=== PATIENT | female | born 1950 | race Caucasian/White ===

== ENCOUNTER → 2016-08-09 | Outpatient (CLI) | payer MEDICARE, BC | LOC: GMAH 20:55 | PROVIDERS: ATTEND Nurse Practitioner Acute Care | DX: R30.0 Dysuria (principal) ==

== ENCOUNTER → 2017-05-07 | Outpatient (CLI) | payer MEDICARE | LOC: GMAJ 14:56 | PROVIDERS: ATTEND Family Medicine | DX: N30.00 Acute cystitis without hematuria (principal) ==

== ENCOUNTER 2017-06-26 18:34 | Emergency (ER) | payer MEDICARE ==
[2017-06-26] MEDS ORDERED: IPRATROPIUM/ALBUTEROL 3 ML VIAL NEB ONE (19:06)
[2017-06-26] MEDS ORDERED: MONTELUKAST 10 MG TAB PO ONE (19:07)
[2017-06-26 19:08] VITALS: BP 98/47; TEMP 97.9
[2017-06-26] MEDS ORDERED: predniSONE 20 MG TAB PO ONE (19:08)
[2017-06-26] MEDS ORDERED: AZITHROMYCIN 250 MG TAB PO ONE (19:08)
[2017-06-26] MEDS ORDERED: CETIRIZINE HCL 10 MG TAB PO ONE (19:11)
[2017-06-26] MEDS ORDERED: HYDROcodone 5MG/APAP 325MG 1 EA TAB PO ONE (19:11)
[2017-06-26 19:29] VITALS: O2SAT 97
--- NOTE | 2017-06-26 19:59 | ED.PDOC ---
History of Present Illness - General Chief Complaint: General Stated Complaint: upper respiratory infection Time Seen by Provider: 06/26/17 19:00 Source: patient Exam Limitations: no limitations - History of Present Illness Initial Comments: The patient is a 66-year-old female presenting to the emergency room secondary to cough that has been present the last 4 days. She has had a mild sore throat and a runny nose as well. She was tested for flu and her primary care doctor's office 2 days ago and was given a steroid shot and a cephalosporin antibiotic. She tested negative for the flu. The patient does have a significant history of asthma and has been doing her breathing treatments every 6 hours as appropriate. She does still have significant wheezes scattered throughout but does have fair air movement. Posterior oropharynx shows mild erythema. She is not in respiratory distress. She is coughing very frequently and does have a hoarse cough. Timing/Duration: unsure Severity: moderate Improving Factors: nothing Worsening Factors: nothing Associated Symptoms: cough Allergies/Adverse Reactions: Allergies NO KNOWN ALLERGY Allergy (Verified 08/19/13 13:46) Review of Systems - Review of Systems Constitutional: States: no symptoms reported EENTM: States: no symptoms reported Respiratory: States: cough Cardiology: States: no symptoms reported Gastrointestinal/Abdominal: States: no symptoms reported Genitourinary: States: no symptoms reported Musculoskeletal: States: no symptoms reported Skin: States: no symptoms reported Neurological: States: no symptoms reported Endocrine: States: no symptoms reported Hematologic/Lymphatic: States: no symptoms reported All other Systems: No Change from Baseline Past Medical History (General) - Patient Medical History Hx Asthma: Yes Surgical History: Hysterectomy - Vaccination History Hx Influenza Vaccination: No - Social History Hx Tobacco Use: No Feels Threatened In Home Enviroment: No Feels Threatened In a Relationship: No - Female History Patient is a Female of Child Bearing Age (10 -59 yrs old): No Physical Exam - Physical Exam General Appearance: Alert, Comfortable, No apparent distress Eye Exam: bilateral normal Ears, Nose, Throat: hearing grossly normal, nasal congestion, pharyngeal erythema Neck: non-tender, supple Respiratory: no respiratory distress, no accessory muscle use, rhonchi - cattered, wheezing - scattered Cardiovascular/Chest: normal peripheral pulses, regular rate, rhythm, no edema Peripheral Pulses: radial,right: 2+, radial,left: 2+, dorsalis pedis,right: 2+, dorsalis pedis,left: 2+ Gastrointestinal/Abdominal: non tender, soft Rectal Exam: deferred Back Exam: normal inspection, no CVA tenderness Extremity: normal range of motion, non-tender, normal inspection, no pedal edema , normal capillary refill 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 This is being complicated by her asthma. The patient is going to be switched over to azithromycin on the off chance that an atypical bacterial source is the cause. She is to continue her nebulizer treatments every 4-6 hours. I am going to add Singulair 10 mg daily to the patient for the next 5 days as well as prednisone 20 mg for the next 2 days. She has received first doses of the each here today. Additionally she can take Zyrtec 10 mg nightly for the next 3 or 4 days only. She can also use a humidifier at night. She will also be written for guaifenesin with codeine as a cough medication to be used for the next day or 2 as needed as her cough is rather severe. ER warnings are given for any significant worsening. She should follow up with her primary care doctor in a day or 2. the prednisone and Singulair are mildly immunosuppressive. They do carry the potential of increasing the length of the infection however her asthma seems to be the bigger problem at the current time. 06/26/17 20:02 - Results/Orders Results/Orders: 06/26/17 19:05 Chest,2 Views [RAD] Stat no obvious infiltrate. No pneumothorax. Minimal air trapping. Departure - Departure Clinical Impression: Acute bronchitis, Asthma exacerbation Disposition: Discharge to Home or Self Care Condition: Good Departure Forms: ED Discharge - Pt. Copy, Patient Portal Self Enrollment Instructions: DI for Asthma -- Adult, DI for Acute Bronchitis Diet: regular diet Activity: increase activity as tolerated Referrals: Julio Cesar Caicedo MD [Primary Care Provider] - 1-2 Days Additional Instructions: the patient is a 66-year-old female presenting with what is most likely a viral respiratory tract infection. This is being complicated by her asthma. The patient is going to be switched over to azithromycin on the off chance that an atypical bacterial source is the cause. She is to continue her nebulizer treatments every 4-6 hours. I am going to add Singulair 10 mg daily to the patient for the next 5 days as well as prednisone 20 mg for the next 2 days. She has received first doses of the each here today. Additionally she can take Zyrtec 10 mg nightly for the next 3 or 4 days only. She can also use a humidifier at night. She will also be written for guaifenesin with codeine as a cough medication to be used for the next day or 2 as needed as her cough is rather severe. ER warnings are given for any significant worsening. She should follow up with her primary care doctor in a day or 2. the prednisone and Singulair are mildly immunosuppressive. They do carry the potential of increasing the length of the infection however her asthma seems to be the bigger problem at the current time.
--- NOTE | 2017-06-26 20:04 | RAD ---
Examination: XR CHEST 2 VIEWS dated 06/26/2017 7:05 PM REMOTE RECRUITER History: cough, sob Comparison: 02/25/2012 Technique: Frontal and lateral views of the chest Findings: The lungs are clear bilaterally. No pneumothorax or pleural effusion. The cardiomediastinal silhouette is within normal limits. Impression: No acute disease. Electronically signed by: Barrie Robbins MD 06/26/2017 8:03 PM REMOTE RECRUITER
== END 2017-06-26 20:13 | disposition home or self-care (01) ==
LOC: ER 18:34
DX: J20.9 Acute bronchitis, unspecified (principal); J45.901 Unspecified asthma with (acute) exacerbation
CPT/HCPCS: 71020; 94640; J7512; J7620; Q0144

== ENCOUNTER → 2017-08-05 | Outpatient (CLI) | payer MEDICARE | LOC: GMAH 10:46 | PROVIDERS: ATTEND Family Medicine | DX: E78.2 Mixed hyperlipidemia (principal) ==

== ENCOUNTER 2017-09-01 13:22 | Emergency (ER) | payer MEDICARE ==
[2017-09-01] MEDS ORDERED: KETOROLAC TROMETHAMINE INJ 30 MG/ML VIAL IV ONE ×2 (13:35→16:37)
[2017-09-01] MEDS ORDERED: PROMETHAZINE HCL INJ 12.5 MG in SODIUM CHLORIDE 0.9% 50ML 50 ML IVPB ONE (13:35)
[2017-09-01] MEDS ORDERED: PROMETHAZINE HCL INJ 25 MG/ML VIAL ONE (13:37)
[2017-09-01] MEDS ORDERED: SODIUM CHLORIDE 0.9% 50ML 50 ML ONE (13:38)
--- NOTE | 2017-09-01 13:38 | ED.PDOC ---
History of Present Illness - General Chief Complaint: Abdominal Pain Stated Complaint: abdominal pain Time Seen by Provider: 09/01/17 13:35 Additional Information: 66 YEAR OLD WHITE FEMALE HERE WITH SUDDEN ONSET OF PAIN IN THE RIGHT LOWER QUADRANT AND PAIN RADIATED FROM RIGHT FLANK TO RIGHT LOWER QUADRANT AND FLANK WELL ASSOCIATED WITH VOMITING - History of Present Illness Abdominal Pain Onset Location: RUQ, suprapubic Pain Radiation: flank, groin Review of Systems - Review of Systems Constitutional: States: no symptoms reported EENTM: States: no symptoms reported Respiratory: States: no symptoms reported Cardiology: States: no symptoms reported Gastrointestinal/Abdominal: States: abdominal pain, vomiting Genitourinary: States: dysuria Musculoskeletal: States: no symptoms reported Skin: States: no symptoms reported Endocrine: States: no symptoms reported Past Medical History (General) - Patient Medical History Hx Asthma: Yes - Vaccination History Hx Influenza Vaccination: No - Social History Hx Tobacco Use: No Family Medical History - Family History Mother Family History: Unknown Progress - Results/Orders Results/Orders: Laboratory Tests 09/01/17 09/01/17 09/01/17 13:30 13:30 13:30 WBC 12.5 H RBC 4.69 Hgb 13.2 Hct 39.1 MCV 83.4 MCH 28.2 MCHC 33.8 RDW 13.7 Plt Count 260 MPV 9.4 Absolute Neuts (auto) 8.00 H Absolute Lymphs (auto) 3.30 Absolute Monos (auto) 0.80 Absolute Eos (auto) 0.20 Absolute Basos (auto) 0.20 H Neutrophils % 64.1 Lymphocytes % 26.3 Monocytes % 6.8 Eosinophils % 1.5 Basophils % 1.3 Sodium 137 Potassium 4.1 Chloride 104 Carbon Dioxide 24 Anion Gap 13.1 BUN 21 H Creatinine 0.87 BUN/Creatinine Ratio 24.1 H Random Glucose 148 H Serum Osmolality 279.5 Calcium 9.5 Total Bilirubin 0.5 AST 31 ALT 36 Alkaline Phosphatase 100 Serum Total Protein 7.7 Albumin 4.0 Globulin 3.7 H Albumin/Globulin Ratio 1.1 Amylase 53 Lipase 25 Urine Color Urine Appearance Urine pH Ur Specific [place] Urine Protein Urine Glucose (UA) Urine Ketones Urine Blood Urine Nitrite Urine Bilirubin Urine Urobilinogen Ur Leukocyte Esterase Urine RBC Urine WBC Ur Epithelial Cells Urine Bacteria 09/01/17 13:36 WBC RBC Hgb Hct MCV MCH MCHC RDW Plt Count MPV Absolute Neuts (auto) Absolute Lymphs (auto) Absolute Monos (auto) Absolute Eos (auto) Absolute Basos (auto) Neutrophils % Lymphocytes % Monocytes % Eosinophils % Basophils % Sodium Potassium Chloride Carbon Dioxide Anion Gap BUN Creatinine BUN/Creatinine Ratio Random Glucose Serum Osmolality Calcium Total Bilirubin AST ALT Alkaline Phosphatase Serum Total Protein Albumin Globulin Albumin/Globulin Ratio Amylase Lipase Urine Color Yellow Urine Appearance Clear Urine pH 5.0 Ur Specific [place] >= 1.030 Urine Protein Negative Urine Glucose (UA) Negative Urine Ketones Negative Urine Blood Trace-lysed H Urine Nitrite Negative Urine Bilirubin Negative Urine Urobilinogen 0.2 Ur Leukocyte Esterase Negative Urine RBC 1-3 Urine WBC 0-1 Ur Epithelial Cells 3-5 Urine Bacteria 0 Departure - Departure Clinical Impression: Abdominal pain, Ureteric stone Time of Disposition: 16:43 Disposition: Discharge to Home or Self Care Condition: Good Departure Forms: ED Discharge - Pt. Copy, Patient Portal Self Enrollment Instructions: DI for Abdominal Pain-Adult Diet: resume usual diet Referrals: Julio Cesar Caicedo MD [Primary Care Provider] - 1-2 Weeks Prescriptions: Acetamin W/Cod #3 Tab [Tylenol w/CODEINE #3] 1 ea PO Q6HR PRN #40 tab PRN Reason: Mild To Moderate Pain Tamsulosin HCl [Flomax] 0.4 mg PO Q24HR #1 cap Promethazine Tab [Phenergan Tablet] 25 mg PO .Q4H #10 tab Home Medications: Ambulatory Orders Acetamin W/Cod #3 Tab [Tylenol w/CODEINE #3] 1 ea PO Q6HR PRN #40 tab 09/01/17 Promethazine Tab [Phenergan Tablet] 25 mg PO .Q4H #10 tab 09/01/17 Tamsulosin HCl [Flomax] 0.4 mg PO Q24HR #1 cap 18
[2017-09-01] MEDS ORDERED: SODIUM CHLORIDE 0.9% 1000ML 1,000 ML IVS ONE (13:43)
[2017-09-01] MEDS ORDERED: fentaNYL CITRATE INJ 50 MCG/ML AMP ONE (13:51)
[2017-09-01] MEDS ORDERED: fentaNYL CITRATE INJ 50 MCG/ML AMP IV ONE (13:52)
[2017-09-01] MEDS ORDERED: HYDROmorphone HCL INJ 2 MG/ML VIAL ONE (14:18)
[2017-09-01] MEDS ORDERED: HYDROmorphone HCL INJ 2 MG/ML VIAL IV ONE (14:18)
[2017-09-01 14:33] VITALS: TEMP 99.5
[2017-09-01 15:44] VITALS: BP 156/83
--- NOTE | 2017-09-01 16:23 | CT ---
EXAM DESCRIPTION: Abdomen/Pelvis w/o Contrast CLINICAL HISTORY: abdominal pain, emesis COMPARISON: 09/06/2014 TECHNIQUE: CT of the abdomen and pelvis was performed without contrast. Multiple axial images and multiplanar reconstructions were generated. This exam was performed according to our departmental dose-optimization program, which includes automated exposure control, adjustment of the mA and/or kV according to patient size and/or use of iterative reconstruction technique. FINDINGS: Lung bases: The visualized lung bases are clear. Solid organs: There is moderate right hydronephrosis and hydroureter with an obstructing 5 mm calculus in the right ureter at the level of the ureterovesical junction. Several additional punctate 2 mm nonobstructing right renal calculi. Solitary nonobstructing 2 mm left renal calculus. There is also right renal cortical calcification and cortical scarring. Evaluation of the solid organs is limited due to lack of IV contrast. Mild hepatic steatosis. The gallbladder, spleen, pancreas, and adrenal glands are unremarkable on this noncontrast exam. Gastrointestinal: The stomach and small intestine are unremarkable. There is extensive colonic diverticulosis with mild colonic wall thickening and mesenteric inflammation about the distal ascending colon. No loculated fluid collection or free air. The appendix is normal. Vascular: Mild atherosclerotic plaque in the abdominal aorta and its major branches. Lymph nodes: No pathologically enlarged lymph nodes are present by CT size criteria. Musculoskeletal and soft tissues: No destructive osseous lesions are present. Multilevel disc degeneration in the lumbar spine. Urinary bladder and pelvic organs: No additional bladder calculi. The uterus is surgically absent. IMPRESSION: 1. Obstructing 5 mm calculus in the right ureterovesical junction with moderate right hydroureteronephrosis. 2. Acute diverticulitis involving the distal descending colon. In addition, recommend follow-up colonoscopy after resolution of acute symptoms to exclude underlying colonic neoplasm in the area of wall thickening. 3. Bilateral nonobstructing renal calculi. 4. Other findings as above. Electronically signed by: Cornelius Marmolejo MD 09/01/2017 4:23 PM CDT
[2017-09-01 17:04] VITALS: O2SAT 95
== END 2017-09-01 17:00 | disposition home or self-care (01) ==
LOC: ER 13:22
DX: N13.2 Hydronephrosis with renal and ureteral calculous obstruction (principal)
CPT/HCPCS: 36415; 74176; 80053; 81001; 82150; 83690; 85025; A4216; J1170; J1885; J2550; J3010; J7030

== ENCOUNTER → 2019-04-10 | Outpatient (CLI) | payer MEDICARE | LOC: GMA MATASK 10:44 | PROVIDERS: ATTEND Family Medicine | DX: E78.2 Mixed hyperlipidemia (principal) ==

== ENCOUNTER 2019-10-01 15:12 | Emergency (ER) | payer MEDICARE ==
[2019-10-01] MEDS ORDERED: ONDANSETRON INJ 4 MG/2 ML VIAL IV ONE (15:16)
[2019-10-01] MEDS ORDERED: KETOROLAC TROMETHAMINE INJ 30 MG/ML VIAL IV ONE (15:16)
[2019-10-01] MEDS ORDERED: SODIUM CHLORIDE 0.9% (FLUSH) 10 ML SYG IV PRN (15:16)
[2019-10-01] MEDS ORDERED: SODIUM CHLORIDE 0.9% 1000ML 1,000 ML IVS ONE (15:16)
--- NOTE | 2019-10-01 15:38 | ED.PDOC ---
History of Present Illness - General Time Seen by Provider: 10/01/19 15:16 Source: patient - History of Present Illness Initial Comments: 68 yo female with PMH of kidney stones who presents with cc of Left lower back pain. Onset 1 week ago, persistent with acute worsening since early this morning. Reports around 3 am became sharp and severe and lasted for 2 hours at that severity, also reports nausea with 3 episodes of NBNB emesis today. Currently 3/10 severity, no known exacerbating factors. Alleviated somewhat earlier by Tramadol at home. Also reports a couple episodes of small watery diarrhea today. Denies any fevers, chills, urinary sx's, constipation, chest pain, dyspnea, cough. Reports hx of Left-sided kidney stones but last was many years ago. Also has had hx of diverticulitis in the past. PCP is Dr. Boogie. Allergies/Adverse Reactions: Allergies Morphine Allergy (Verified 09/01/17 13:33) Home Medications: Ambulatory Orders Acetamin W/Cod #3 Tab [Tylenol w/CODEINE #3] 1 ea PO Q6HR PRN #40 tab 09/01/17 Promethazine Tab [Phenergan Tablet] 25 mg PO .Q4H #10 tab 09/01/17 Tamsulosin HCl [Flomax] 0.4 mg PO Q24HR #1 cap 09/01/17 Acetaminophen W/ Codeine [Tylenol W/ CODEINE #3] 1 ea PO Q6H PRN 10 Days #12 10/01/19 Cyclobenzaprine HCl [Flexeril] 10 mg PO Q8H PRN 30 Days #30 tab 10/01/19 Ondansetron Odt [Zofran ODT] 8 mg PO Q8H PRN 5 Days #10 tab 10/01/19 Review of Systems - Review of Systems Review of Systems: 10/01/19 15:38 as per HPI All other Systems: Reviewed and Negative Past Medical History (General) - Patient Medical History Hx Stroke: No Hx Dementia: No Hx Asthma: Yes Hx of COPD: No Hx Cardiac Disorders: Yes Hx Congestive Heart Failure: No Hx Hypertension: Yes Hx Thyroid Disease: No Hx Diabetes: No - Vaccination History Hx Influenza Vaccination: No - Social History Hx Tobacco Use: No Family Medical History - Family History Mother Family History: Unknown Physical Exam - Physical Exam General Appearance: Alert, No apparent distress, Obese Eye Exam: bilateral normal Ears, Nose, Throat: normal ENT inspection, normal pharynx Neck: non-tender, full range of motion, supple, normal inspection Respiratory: lungs clear, normal breath sounds, no respiratory distress, no accessory muscle use Cardiovascular/Chest: normal peripheral pulses, regular rate, rhythm, no edema, no gallop, no murmur Peripheral Pulses: radial,right: 2+, radial,left: 2+ Gastrointestinal/Abdominal: non tender, soft, no organomegaly, abnormal bowel sounds - diminished throughout Back Exam: normal inspection, no vertebral tenderness, CVA tenderness (L) - moderate left lower back/flank region Extremity: normal range of motion, non-tender, normal inspection, no pedal edema, no calf tenderness 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 Consider also diverticulitis, UTI, pyelo, gastroenteritis/colitis, constipation, other -obtain UA, labwork -place PIV, 1 L NS bolus, Toradol 30 mg IV, Zofran 4 mg IV 10/01/19 16:29 -Pt remains stable, pain improving -Labs largely unremarkable. No RBCs noted on UA. CBC, CMP pretty unremarkable. -Given her reported severity of pain which has been waxing & waning, still concern for possible ureteral stone. Will obtain CT A/P wo contrast. 10/01/19 17:43 -CT A/P reveals small nonobstructing BL kidney stones but no ureteral stones or other findings which would explain her acute pain/symptoms. -Pt reports feeling much better with ED trx. Discussed etiology of sx's uncertain. Suspect possible gastroenteritis and back muscle spasms. Discussed diagnoses, expected course, and home trx/follow-up. Will give Rx of Tylenol #3 PRN breakthrough pain, Zofran PRN, Flexeril PRN. -dc to home in good condition, f/u closely with PCP Rajeev Perkins MD Billing #[id number] 10/01/19 15:16 IV Care:Saline Lock per Protoc QSHIFT Sodium Chloride 0.9% (Flush) [Saline Flush Syringe] 10 ml IV PRN PRN 10/01/19 17:18 Promethazine HCl Inj [Phenergan Inj] 12.5 mg Sodium Chloride 0.9% 50Ml [NS 50ml] 50 ml IVPB ONCE 10/01/19 17:45 EKG STAT Laboratory Results - last 24 hr 10/01/19 10/01/19 10/01/19 15:35 15:45 15:45 WBC 9.4 RBC 4.67 Hgb 13.4 Hct 39.3 MCV 84.1 MCH 28.6 MCHC 34.0 RDW 12.2 Plt Count 208 MPV 9.5 Absolute Neuts (auto) 7.00 H Absolute Lymphs (auto) 1.80 Absolute Monos (auto) 0.40 Absolute Eos (auto) 0.10 Absolute Basos (auto) 0.10 Neutrophils % 74.1 Lymphocytes % 19.6 L Monocytes % 4.5 Eosinophils % 0.9 L Basophils % 0.9 Sodium 135 Potassium 3.8 Chloride 101 Carbon Dioxide 25 Anion Gap 12.8 BUN 12 Creatinine 0.77 BUN/Creatinine Ratio 15.6 Random Glucose 142 H Serum Osmolality 272.3 L Calcium 9.1 Total Bilirubin 0.5 Direct Bilirubin 0.1 Indirect Bilirubin 0.4 AST 29 ALT 28 Alkaline Phosphatase 87 Serum Total Protein 7.6 Albumin 4.3 Lipase 28 Urine Color Yellow Urine Appearance Clear Urine pH 7.0 Ur Specific [place] 1.025 Urine Protein Negative Urine Glucose (UA) Negative Urine Ketones Negative Urine Blood Negative Urine Nitrite Negative Urine Bilirubin Negative Urine Urobilinogen 0.2 Ur Leukocyte Esterase Negative Urine RBC 0 Urine WBC 0 Ur Epithelial Cells 0-1 Urine Bacteria 0 - EKG/XRAY/CT EKG: Sinus - NSR, HR 80, no ST elevs or q waves, nonspecific ST-T changes anterior leads, left axis deviation, intervals normal, no prior EKG for comparison (this EKG not ordered by me, done automatically upon patient arrival for reason unknown) Departure - Departure Clinical Impression: Back muscle spasm, Gastroenteritis Time of Disposition: 17:39 Disposition: Discharge to Home or Self Care Condition: Fair Instructions: Muscle Spasms (DC), Viral Gastroenteritis, Adult (DC) Diet: resume usual diet Activity: increase activity as tolerated Referrals: oHsea Abreu MD [Primary Care Provider] - 1-2 Weeks Prescriptions: Acetaminophen W/ Codeine [Tylenol W/ CODEINE #3] 1 ea PO Q6H PRN 10 Days #12 PRN Reason: Pain Cyclobenzaprine HCl [Flexeril] 10 mg PO Q8H PRN 30 Days #30 tab PRN Reason: Muscle Spasms Ondansetron Odt [Zofran ODT] 8 mg PO Q8H PRN 5 Days #10 tab PRN Reason: Nausea Home Medications: Ambulatory Orders Acetamin W/Cod #3 Tab [Tylenol w/CODEINE #3] 1 ea PO Q6HR PRN #40 tab 09/01/17 Promethazine Tab [Phenergan Tablet] 25 mg PO .Q4H #10 tab 09/01/17 Tamsulosin HCl [Flomax] 0.4 mg PO Q24HR #1 cap 09/01/17 Acetaminophen W/ Codeine [Tylenol W/ CODEINE #3] 1 ea PO Q6H PRN 10 Days #12 10/01/19 Cyclobenzaprine HCl [Flexeril] 10 mg PO Q8H PRN 30 Days #30 tab 10/01/19 Ondansetron Odt [Zofran ODT] 8 mg PO Q8H PRN 5 Days #10 tab 10/01/19 Additional Instructions: Remain well-hydrated and advance diet and activity level gradually as tolerated. Continue ibuprofen 600 mg every 6 hours and Tylenol 650 mg every 6 hours as needed for pain. You may take Tylenol #3 for breakthrough pain but do not drive while taking. You may take Flexeril for muscle spasms and Zofran for nausea as directed. Return if pain/symptoms worsen or other concerning symptoms develop such as blood in the urine, fevers, blood in the stool, intractable nausea/vomiting, etc...
[2019-10-01 16:00] VITALS: TEMP 98.2; O2SAT 97
--- NOTE | 2019-10-01 17:15 | CT ---
EXAM DESCRIPTION: Abdoment/Pelvis w/o Contrast CLINICAL HISTORY: 68 years, Female, Left lower flank pain, hx of kidney stones COMPARISON: Previous CT abdomen and pelvis September 01, 2017 TECHNIQUE: CT of the abdomen and pelvis is performed according to our non contrast protocol. FINDINGS: The lung bases are clear. Small left lobe liver cyst. Liver appears fatty. Liver, spleen, and pancreas are otherwise unremarkable. Adrenal glands appear normal. Bilateral renal stones with right renal scarring. Largest stone on the right measures 1.1 cm. Small upper calyceal stone on the left measures 3 mm. No ureteral stones or hydronephrosis. Small bowel loops appear normal in caliber with normal wall thickness. There is no lymphadenopathy, inflammation, or free fluid observed. In the pelvis, the appendix is normal. No inflammation around the cecum or terminal ileum or sigmoid colon. No stones in the distal ureters or bladder. Rectal wall thickness is normal for degree of distention. No free fluid or mass in the pelvis. Uterus and ovaries are not seen, evidently surgically absent. No inguinal or lower pelvic adenopathy. Coronal and sagittal reformatted images confirm the findings. IMPRESSION: Bilateral renal calculi without obstructive uropathy. This exam was performed according to our departmental dose-optimization program, which includes automated exposure control, adjustment of the mA and/or kV according to patient size and/or use of iterative reconstruction technique. Total DLP equals 1304.56 mGycm. Electronically signed by: Danny Enciso MD 10/01/2019 5:14 PM CDT
[2019-10-01] MEDS ORDERED: ACETAMINOPHEN 500 MG TAB PO ONE (17:18)
[2019-10-01] MEDS ORDERED: PROMETHAZINE HCL INJ 12.5 MG in SODIUM CHLORIDE 0.9% 50ML 50 ML IVPB ONE (17:18)
[2019-10-01] MEDS ORDERED: PROMETHAZINE HCL INJ 25 MG/ML VIAL ONE (17:22)
[2019-10-01] MEDS ORDERED: SODIUM CHLORIDE 0.9% 50ML 50 ML ONE (17:22)
[2019-10-01 18:00] VITALS: BP 182/78
== END 2019-10-01 18:35 | disposition home or self-care (01) ==
LOC: ER 15:12
DX: K52.9 Noninfective gastroenteritis and colitis, unspecified (principal); N20.0 Calculus of kidney; M62.830 Muscle spasm of back; Z87.442 Personal history of urinary calculi; I10 Essential (primary) hypertension
CPT/HCPCS: 36415; 74176; 80048; 80076; 81001; 83690; 85025; 93005; A4216; J1885; J2405; J2550; J7030

== ENCOUNTER → 2020-07-09 | Outpatient (CLI) | payer MEDICARE | LOC: GMA MATASK 10:49 | PROVIDERS: ATTEND Family Medicine | DX: I10 Essential (primary) hypertension (principal); E03.9 Hypothyroidism, unspecified; M25.50 Pain in unspecified joint ==